=== PATIENT | female | born 1990 ===

== ENCOUNTER 2017-02-22 16:13 | Outpatient (CLI) | payer SELFPAY | END 2017-02-22 16:14 | disposition EMS.NT | LOC: EMS 16:13 | PROVIDERS: ATTEND Surgery | DX: S51.811A Laceration without foreign body of right forearm, initial encounter (principal); W25.XXXA Contact with sharp glass, initial encounter; Y92.008 Other place in unspecified non-institutional (private) residence as the place of occurrence of the external cause ==